=== PATIENT | male | born 1945 | race Hispanic/Latino ===

== ENCOUNTER 2022-11-12 22:36 | Emergency (ER) | payer SELFPAY ==
[2022-11-12] MEDS ORDERED: Boostrix 0.5 ML (Tdap) VIAL (>/=7 yrs of age) ONE (23:38)
== END 2022-11-13 00:35 | disposition home or self-care (01) ==
LOC: NAV ERS 22:36
DX: F10.129 Alcohol abuse with intoxication, unspecified (principal); S01.01XA Laceration without foreign body of scalp, initial encounter; Z23 Encounter for immunization; W18.30XA Fall on same level, unspecified, initial encounter; Y92.009 Unspecified place in unspecified non-institutional (private) residence as the place of occurrence of the external cause
CPT/HCPCS: 12004; 70450; 72125; 90471; 90715

== ENCOUNTER 2022-11-22 12:31 | Emergency (ER) | payer SELFPAY | END 2022-11-22 13:00 | disposition home or self-care (01) | LOC: NAV ERS 12:31 | DX: S01.01XD Laceration without foreign body of scalp, subsequent encounter (principal); W18.30XD Fall on same level, unspecified, subsequent encounter ==